=== PATIENT | male | born 1995 | race Caucasian/White ===

== ENCOUNTER 2016-09-30 08:39 | Emergency (ER) | payer OTHER ==
[2016-09-30] MEDS ORDERED: DEXAMETHASONE 10 MG/ML VIAL PO STA (09:47)
[2016-09-30] MEDS ORDERED: CHERRY SYRUP 10 ML UDC PO ONE (09:47)
[2016-09-30] MEDS ORDERED: DEXAMETHASONE 10 MG/ML VIAL ONE (09:47)
== END 2016-09-30 09:54 | disposition home or self-care (01) ==
DX: L50.9 Urticaria, unspecified (principal); H66.003 Acute suppurative otitis media without spontaneous rupture of ear drum, bilateral
CPT/HCPCS: 99283; 99284; A9270